=== PATIENT | male | born 2000 | race Caucasian/White ===

== ENCOUNTER 2019-04-20 15:45 | Emergency (ER) | payer MEDICAID, OTHER ==
[~2019-04-20] VITALS: Ht 167.6 cm; Wt 100.0 kg
[2019-04-20 15:56] VITALS: BP 155/91
[2019-04-20] MEDS ORDERED: HYDROcodone/acetaminophen 10/325mg tab PO ONE (16:45)
[2019-04-20] MEDS ORDERED: LIDOcaine 1% w/epiNEPHrine 1:200,000 30ml vial IM ONE (17:45)
[2019-04-20] MEDS ORDERED: HYDR-4353 PO (18:09)
[2019-04-20] MEDS ORDERED: IBUP-1984 PO (18:09)
== END 2019-04-20 18:45 | disposition home or self-care (01) ==
LOC: ER 15:45
DX: S62.141A Displaced fracture of body of hamate [unciform] bone, right wrist, initial encounter for closed fracture (principal); Y04.0XXA Assault by unarmed brawl or fight, initial encounter; Y93.89 Activity, other specified; Y92.89 Other specified places as the place of occurrence of the external cause; Y99.9 Unspecified external cause status
CPT/HCPCS: 25635; 73110; 73130; 99284

== ENCOUNTER 2023-01-24 16:52 | Emergency (ER) | payer MEDICAID, OTHER ==
[~2023-01-24] VITALS: Ht 165.1 cm; Wt 111.4 kg
[2023-01-24] MEDS ORDERED: triamcinolone acetonide 40mg/ml inj IM ONE (19:05)
[2023-01-24] MEDS ORDERED: CETI10TA19 PO (19:05)
[2023-01-24] MEDS ORDERED: neomy sulf/polymyx B sulf/HC 7.5ml ophthalmic suspension EACHEYE ONE (19:10)
== END 2023-01-24 19:32 | disposition home or self-care (01) ==
LOC: ER 16:55
DX: T78.40XA Allergy, unspecified, initial encounter (principal); Z77.098 Contact with and (suspected) exposure to other hazardous, chiefly nonmedicinal, chemicals; Z79.899 Other long term (current) drug therapy
CPT/HCPCS: 96372; 99283; J3301